=== PATIENT | male | born 1940 | race Caucasian/White ===

== ENCOUNTER → 2020-09-28 13:38 | Outpatient (BNVA) | payer BC, SELFPAY | PROVIDERS: PCP Internal Medicine; Visit Provider Urology ==

== ENCOUNTER → 2021-09-30 09:00 | Outpatient (BNVA) | payer BC, SELFPAY | PROVIDERS: Visit Provider Urology ==

== ENCOUNTER → 2022-10-03 12:39 | Outpatient (BNVA) | payer BC, SELFPAY | PROVIDERS: PCP Internal Medicine; Visit Provider Urology | DX: N39.3 Stress incontinence (female) (male) (principal); C61 Malignant neoplasm of prostate | CPT/HCPCS: 51798 ==

== ENCOUNTER 2023-11-23 13:47 | Outpatient (AMB) | payer BC, SELFPAY ==
--- NOTE | 2023-11-23 14:23 | MHC.OFFVIS ---
Intake Visit Reasons: 1Y PSA(set) Intake Note: Patient is Present for Follow Up PSA Urology Medication: None Antibiotic Allergies:None Blood Thinners:None Allergies lisinopril Allergy (Unknown, Verified 10/03/22 12:56) Unknown HPI Comments Details: Austen PEREZ is a very pleasant male. He is a patient of Dr Yi. He is seen in the office today for the following urologic conditions. - prostate cancer - stress incontinence - prior sling effective for 7 years PSA remains normal Good effect with dribblestop - does use for 8 hours Continue yearly follow-up Prostate cancer: Intermediate risk robotic prostatectomy December 2006, external beam radiation Jun 2008 PSA remains low Urine control is reasonable Has been using a clamp which has been helpful - dribblestop Review in 12 months Had infection with hematuria in 04/14 - no recurrence. Prostate cancer was diagnosed [address] Mejia. Diagnosis was reached by needle biopsy, for elevated PSA. TNM Classification of Malignant Tumours (TNM) T1c. The D'Isaak (NCCN) risk category is Intermediate Risk (PSA 10-20, Gl 7, T2) Group 2. Initial therapy included 2006 , Primary treatment, Prostatectomy (RRP/Robotic) 2008, Additional treatment, External beam radiation with short term hormonal ablation. - sling procedure 2008 - worked well for 7 years Recent labs included 11/12 , a PSA (prostate-specific antigen), < 0.1 04/14 PSA < 0.1, 09/16 PSA <0.1, 09/17 <0.1, 09/18 <0.1 Associated conditions erectile dysfunction Yes hematuria No hot flashes No incontinence Yes Stress incontinence frequent, requires pad protection Good response to penile clamp. osteopenia No pathologic fracture No radiation cystitis No rectal urgency No Therapeutic plan: Continue with surveillance [facility] Medical History Hyperlipidemia HTN (hypertension) Radiation cystitis Male stress incontinence Erectile dysfunction after radical prostatectomy Rising PSA following treatment for malignant neoplasm of prostate Prostate cancer Family History Father No problems noted. Mother No problems noted. Social History Household Members: Spouse Current occupational status: retired Review of Systems Const Denies chills and Denies fever(s) Card Reports no additional complaints and Denies syncope Resp Denies cough GI Denies abdominal pain and Denies heartburn Reports as per HPI and Denies change in libido Neuro Denies syncope Psych Denies change in libido Endo Denies change in libido Physical Exam Const General: cooperative, healthy appearing, comfortable and no acute distress Orientation/consciousness: patient oriented x3 HEENT Face and sinus: Yes normal facial exam Mouth: moist mucous membranes Neck Neck: Yes normal visual inspection, Yes full ROM and Yes trachea midline Chest Chest palpation & inspection: normal inspection of the chest Resp Effort & Inspection: normal respiratory effort, able to speak in complete sentences and no respiratory distress GI Inspection: Yes normal to inspection Back/Spine/Pelvis Cervical Spine: normal cervical lordosis Thoracic/Lumbar Spine: thoracic and lumbar spine normal to inspection Skin General skin exam: no rashes or lesions noted Neuro General: patient oriented x3, gait normal, tone normal and moves all extremities Extrem General: Yes normal to inspection and Yes capillary refill normal Assessment & Plan Assessment & Plan (1) Prostate cancer: Code(s): C61 - Malignant neoplasm of prostate Category: Medical (2) Male stress incontinence: Code(s): N39.3 - Stress incontinence (female) (male) Category: Medical Plan Twelve month follow-up Orders: Orders Prostate Specific Antigen 364 Days C61 - Malignant neoplasm of prostate Patient Instructions: Imaging studies, laboratory and physical exam results were discussed and reviewed in detail. No major barriers to patient understanding were identified. An opportunity to ask questions regarding the treatment plan was provided. All questions were answered. The patient expressed understanding and agreement with the above treatment plan. The patient is aware they should contact our office by phone for worsening of their current condition or the appearance of new urologic symptoms. Compliance is encouraged with any medications and followup testing that is ordered. It is a privilege to participate in the urologic care of your patient. If you have any questions or concerns regarding treatment for the above conditions, or other urologic issues, please do not hesitate to contact me. The office telephone contact is [phone]. This note is constructed using voice recognition software. While every effort has been made to ensure accuracy benefit director errors may have been included. Yours sincerely, Dr Vamshi Garcia MD, [facility] - Urology Providers of Expert, Compassionate Care for the Genitourinary System
== END 2023-11-23 15:09 | disposition home or self-care (01) ==
PROVIDERS: PCP Internal Medicine; Visit Provider Urology
DX: C61 Malignant neoplasm of prostate (principal); N39.3 Stress incontinence (female) (male)
CPT/HCPCS: 99213

== ENCOUNTER → 2023-11-23 13:47 | Outpatient (BNVA) | payer BC, SELFPAY | PROVIDERS: PCP Internal Medicine; Visit Provider Urology ==

== ENCOUNTER 2024-11-18 13:30 | Outpatient (AMB) | payer BC, SELFPAY ==
--- NOTE | 2024-11-18 13:40 | MHC.OFFVIS ---
Intake Visit Reasons: 1y/PSA Intake Note: Patient is Present for 1Y Follow Up PSA Urology Medication: None Antibiotic Allergies:None Blood Thinners:None Nuclear Technologist Required: No Allergies lisinopril Allergy (Unknown, Verified 11/18/24 13:41) Unknown HPI Comments Details: Austen PEREZ is a very pleasant male. He is a patient of Dr Estrella. He is seen in the office today for the following urologic conditions. - prostate cancer - stress incontinence - prior sling effective for 7 years Accompanied by PSA remains normal Does have some leakage in uses pads Discussed 3rd great grandchild Continue yearly follow-up Prostate cancer: Intermediate risk robotic prostatectomy December 2006, external beam radiation Jun 2008 PSA remains low Urine control is reasonable Has been using a clamp which has been helpful - nathan Review in 12 months Had infection with hematuria in 04/14 - no recurrence. Prostate cancer was diagnosed [address] Mejia. Diagnosis was reached by needle biopsy, for elevated PSA. TNM Classification of Malignant Tumours (TNM) T1c. The D'Isaak (NCCN) risk category is Intermediate Risk (PSA 10-20, Gl 7, T2) Group 2. Initial therapy included 2006 , Primary treatment, Prostatectomy (RRP/Robotic) 2008, Additional treatment, External beam radiation with short term hormonal ablation. - sling procedure 2008 - worked well for 7 years Recent labs included 11/12 , a PSA (prostate-specific antigen), < 0.1 04/14 PSA < 0.1, 09/16 PSA <0.1, 09/17 <0.1, 09/18 <0.1, 09/20 <0.1 Associated conditions erectile dysfunction Yes hematuria No hot flashes No incontinence Yes Stress incontinence frequent, requires pad protection Good response to penile clamp. osteopenia No pathologic fracture No radiation cystitis No rectal urgency No Therapeutic plan: Continue with surveillance [facility] Medical History Hyperlipidemia HTN (hypertension) Radiation cystitis Male stress incontinence Erectile dysfunction after radical prostatectomy Rising PSA following treatment for malignant neoplasm of prostate Prostate cancer Family History Father No problems noted. Mother No problems noted. Social History Household Members: Spouse Current occupational status: retired Review of Systems Const Denies chills and Denies fever(s) Card Reports no additional complaints and Denies syncope Resp Denies cough GI Denies abdominal pain and Denies heartburn Reports as per HPI and Denies change in libido Neuro Denies syncope Psych Denies change in libido Endo Denies change in libido Physical Exam Const General: cooperative, healthy appearing, comfortable and no acute distress Orientation/consciousness: patient oriented x3 HEENT Face and sinus: Yes normal facial exam Mouth: moist mucous membranes Neck Neck: Yes normal visual inspection, Yes full ROM and Yes trachea midline Chest Chest palpation & inspection: normal inspection of the chest Resp Effort & Inspection: normal respiratory effort, able to speak in complete sentences and no respiratory distress GI Inspection: Yes normal to inspection Back/Spine/Pelvis Cervical Spine: normal cervical lordosis Thoracic/Lumbar Spine: thoracic and lumbar spine normal to inspection Skin General skin exam: no rashes or lesions noted Neuro General: patient oriented x3, gait normal, tone normal and moves all extremities Extrem General: Yes normal to inspection and Yes capillary refill normal Assessment & Plan Assessment & Plan (1) Prostate cancer: Code(s): C61 - Malignant neoplasm of prostate Category: Medical (2) Male stress incontinence: Code(s): N39.3 - Stress incontinence (female) (male) Category: Medical Plan Twelve month follow-up Orders: Orders Prostate Specific Antigen 364 Days C61 - Malignant neoplasm of prostate Patient Instructions: This note is constructed using voice recognition software. While every effort has been made to ensure accuracy station cook errors may have been included. Imaging studies, laboratory and physical exam results were discussed and reviewed in detail. No major barriers to patient understanding were identified. An opportunity to ask questions regarding the treatment plan was provided. All questions were answered. The patient expressed understanding and agreement with the above treatment plan. The patient is aware they should contact our office by phone for worsening of their current condition or the appearance of new urologic symptoms. Compliance is encouraged with any medications and followup testing that is ordered. It is a privilege to participate in the urologic care of your patient. If you have any questions or concerns regarding treatment for the above conditions, or other urologic issues, please do not hesitate to contact me. The office telephone contact is [phone]. Sincerely, Dr Vamshi Garcia MD, [facility] - Urology Compassionate Specialist Care for the Genitourinary System Coding Level of Care Code Est Pt Level 4 (01094) Complex EM visit Add On G2211 Diagnoses Prostate cancer C61 Male stress incontinence N39.3
--- OUTSIDE RECORDS SUMMARY | 2024-11-18 16:31 | XMS_ITS | Referral Summary ---
Author Organization [facility] Address [address] [place] [address] Care Team Providers Care Sales Hunter Name Role Phone Tara Estrella MD Primary Care Provider [phone] Allergies Active Allergy Reactions Criticality Noted Date Comments Lisinopril Cough 06/21/2018 Other reaction(s): Cough Medications clindamycin (CLEOCIN) 300 mg capsule Take 1 capsule (300 mg total) by mouth 3 times a day. Follow dose with water, juice, or milk. 3 capsule 10/08/2023 Active amLODIPine (NORVASC) 10 mg tablet Take 10 mg by mouth. 08/29/2021 Active pravastatin (PRAVACHOL) 20 mg tablet Take 20 mg by mouth. 10/29/2013 Active losartan (COZAAR) 100 mg tablet Take 100 mg by mouth. 08/23/2020 Active triamterene-hyd rochlorothiazid (DYAZIDE) 37.5-25 mg per capsule Take 0.5 capsules by mouth every morning. Active clindamycin (CLEOCIN) 300 mg capsule Take 1 capsule (300 mg total) by mouth 3 times a day. Follow dose with water, juice, or milk. 3 capsule 12/25/2023 Active Active Problems Problem Noted Date Diagnosed Date History of skin cancer 10/03/2023 Xerosis cutis 07/14/2014 Hyperlipidemia 08/25/2013 Itching 07/15/2013 Aortic aneurysm 06/20/2013 Heart disease 03/20/2013 Essential hypertriglyceridemia 03/20/2013 Seborrheic keratosis 03/20/2013 Hypertension 03/20/2013 Prostate cancer 03/20/2013 Inguinal hernia 03/20/2013 Anxiety 03/20/2013 Resolved Problems Problem Noted Date Diagnosed Date Resolved Date Basal cell carcinoma (BCC) o f left upper extremity 10/29/2023 12/25/2023 Skin lesion 10/03/2023 12/25/2023 Actinic keratosis 03/20/2013 10/03/2023 Immunizations Immunization Administration Dates Next Due Tetanus Toxoid, Reduced Diph theria Toxoid, and Acellular Pertussis Vaccine, Adsorbed 06/20/2013 Social History Tobacco Use Types Packs/Day Years Used Date Smoking Tobacco: Former Comments:: Sex and Gender Information Value Date Recorded Sex Assigned at Not on file Legal Sex Male 12:13 AM EDT Gender Identity Not on file Sexual Orientation Not on file Last Filed Vital Signs Vital Sign Reading Time Taken Comments Blood Pressure 150/65 03/22/2015 11:45 AM EDT Pulse 60 03/22/2015 11:45 AM EDT Temperature 36.7 ??C (98 ??F) 03/22/2015 11:45 AM EDT Respiratory Rate - - Oxygen Saturation 97% 03/22/2015 11:45 AM EDT Inhaled Oxygen Concentration - - Weight 96.8 kg (213 lb 8 oz) 03/22/2015 11:45 AM EDT Height 180.3 cm (5' 11 ) 03/22/2015 11:45 AM EDT Body Mass Index 29.78 03/22/2015 11:45 AM EDT Plan of Treatment Not on file Insurance [facility] MCR REPLACE PPO Care Teams Sales Hunter Relationship Specialty Start Date End Date Tara Estrella MD [address] [place], [place] [phone] PCP - General Internal Medicine 10/03/23
--- OUTSIDE RECORDS SUMMARY | 2024-11-18 16:31 | XMS_ITS | Encounter Summary ---
Author Organization [facility] Address [address] [address] Phone Care Team Providers Care Security Patrol Officer Name Role Phone Tara Estrella MD Primary Care Provi [facility] Reason for Referral * Consultation (Elective) - Closed Specialty Diagnoses / Procedures Referred By Contac t Referred To Contact Neurology Diagnoses Encounter for consultation Tara Estrella MD [address] [place] [address] [facility] Parent [address] [place] [phone] Referral ID Status Reason Start Date Expiration Date Visits Re quested Visits Authorized [id number] Closed 03/27/2018 03/27/2019 1 1 Scheduling Instructions Request for eval of progressive right hand cramping and weakness. Reviewed by access team and assigned to neuro musc Encounter Details Date Type Department Care Team (Latest Contact Info) Description 03/27/2018 Transcribe Orders [facility] Department of Neurology [address] [place] [address] [address] [place], [place] [id number] Tara Estrella MD [address] [place] [address] Encounter for consultation (Primary Dx) Social History Tobacco Use Types Packs/Day Years Used Date Smoking Tobacco: Never Assessed Sex and Gender Information Value Date Recorded Sex Assigned at Not on file Gender Identity Not on file Sexual Orientation Not on file documented as of this encounter Plan of Treatment Scheduled Referrals Name Type Priority Associated Diagnoses Orde r Schedule Ambulatory referral to [facility] Neurology Outpatient Referral Routine Encounter for consultation Ordered: 03/27/2018 documented as of this encounter Visit Diagnoses Diagnosis Encounter for consultation- Primary documented in this encounter Care Teams Security Patrol Officer Relationship Specialty Start Date End Date Tara Estrella MD [address] [place] [address] PCP - General Cardiology 02/11/18 documented as of this encounter Additional Source Comments The information contained in this document represents components of the legal health record. It is not the complete legal health record.[facility]
--- OUTSIDE RECORDS SUMMARY | 2024-11-18 16:31 | XMS_ITS | Encounter Summary ---
Author Organization [facility] Address [address] [place] [phone] Phone Care Team Providers Care Admissions Specialist Name Role Phone Tara Estrella MD Primary Care Provi sarina Encounter Details Date Type Department Care Team (Late st Contact Info) Description 06/21/2018 Procedure Pass [facility] Imaging [address] [place] [address] Social History Tobacco Use Types Packs/Day Years Used Date Smoking Tobacco: Never Assessed Sex and Gender Information Value Date Recorded Sex Assigned at Not on file Gender Identity Not on file Sexual Orientation Not on file documented as of this encounter Plan of Treatment Not on file documented as of this encounter Visit Diagnoses Not on filedocumented in this encounter Care Teams Admissions Specialist Relationship Specialty Start Date End Date Tara Estrella MD [address] [place] [address] PCP - General Cardiology 02/11/18 documented as of this encounter Additional Source Comments The information contained in this document represents components of the legal health record. It is not the complete legal health record.[facility]
--- OUTSIDE RECORDS SUMMARY | 2024-11-18 16:31 | XMS_ITS | Clinical Summary ---
Author Organization [facility] Address [address] [place] [address] Care Team Providers Care Hospital Social Worker Name Role Phone Tara Estrella MD Primary Care Provider Allergies Active Allergy Reactions Criticality Noted Date [...] Toxoid, and Acellular Pertussis Vaccine, Adsorbed 06/20/2013 Family History Medical History Relation Name Comments Other Other 1 Family history of Hypertension Other Other 2 Denied Family H istory of colon cancer Other Other 3 Denied Family H istory of diabetes mellitus Other Other 4 Denied Family H istory of melanoma Other Other 5 Denied Family H istory of myocardial infarction Relation Name Status Comments Other 1 Other 2 Other 3 Other 4 Other 5 Social History Tobacco Use Types Packs/Day Years [...] 03/22/2015 11:45 AM EDT Plan of Treatment Health Maintenance Due Date Last Done Comments Basic Metabolic Panel 1940 RSV Vaccine (60+ years old and patients) (1 - 1-dose 75+ series) 2017 DTaP,Tdap,and Td Vaccines (3 - Td or Tdap) 06/20/2023 06/20/2013, 06/19/2013 COVID-19 Vaccine ( season) 2024 05/22/2023, 07/04/2022, 01/11/2022, Additional history exists Influenza Vaccine (#1) 2024 , 07/04/2022, 06/07/2021, Additional history exists Alcohol/Substance Use Screening 08/27/2024 Depression Screening and Follow-Up 08/27/2024 Health Care Proxy Review 08/27/2024 Social Drivers of Health Annual Screening 08/27/2024 Zoster Vaccines Completed 10/13/2021, 09/27, 08/02/2021, Additional history exists Pneumococcal Vaccine: 50+ Years Completed 11/09/2021, 07/03/2020 Hepatitis B Vaccines Aged Out No long er eligible based on patient's age to complete this topic Insurance [facility] MCR REPLACE PPO Care Teams Hospital Social Worker Relationship Specialty Start Date End Date Tara Estrella MD [address] [place], [place] [phone] PCP - General Internal Medicine 10/03/23
--- OUTSIDE RECORDS SUMMARY | 2024-11-18 16:31 | XMS_ITS | Clinical Summary ---
Author Organization [facility] Address [address] [facility] [address] [place] [phone] Phone Care Team Providers Care Day Habilitation Supervisor Name Role Phone Tara Estrella MD Primary Care Provi sarina Allergies Active Allergy Reactions Criticality Noted Date Comments Lisinopril Cough 06/21/2018 Medications Medication Sig Dispensed Refills Start Date End Date Status atenolol (TENORMIN) 25 MG tablet 05/09/2018 Active triamterene-hydroCHLO ROthiazide (MAXZIDE-25) 37.5-25 mg per tablet 05/06/2018 Active losartan (COZAAR) 50 MG tablet 05/06/2018 Active pravastatin (PRAVACHOL) 20 MG tablet 06/01/2018 Active triamcinolone acetonide 0.1 % cream Apply topically 2 (two) times a day. Active Active Problems No known active problems Social History Tobacco Use Types Packs/Day Years Used Date Smoking Tobacco: Former Cigarettes Q uit: 1969 Smokeless Tobacco: Former Education Answer Date Recorded Are you interested in more education? Not on jimenez e 12/30/2022 Are you concerned about learning? Not on file 12/30/2022 No 12/30/2022 No 12/30/2022 Digital Access Answer Date Recorded No 01/21/2023 No 01/21/2023 No 01/21/2023 Reliable internet access at home? Not on file 01/21/2023 Device with a working camera? Not on file Sex and Gender Information Value Date Recorded Sex Assigned at Not on file Gender Identity Not on file Sexual Orientation Not on file Last Filed Vital Signs Vital Sign Reading Time Taken Comments Blood Pressure 148/65 06/21/2018 9:36 AM EDT Pulse 57 06/21/2018 9:36 AM EDT Temperature 36.8 ??C (98.3 ??F) 06/21/2018 9:36 AM ED T Respiratory Rate - - Oxygen Saturation 96% 06/21/2018 9:36 AM EDT Inhaled Oxygen Concentration - - Weight 91.6 kg (202 lb) 06/21/2018 9:36 AM EDT Height 177 cm (5' 9.69 ) 06/21/2018 9:36 AM EDT shoes on Body Mass Index 29.25 06/21/2018 9:36 AM EDT Plan of Treatment Health Maintenance Due Date Last Done Comments Adult Td,Tdap Booster 1940 CREATININE LEVEL 1940 POTASSIUM LEVEL 1940 DEPRESSION SCREENING 1954 ZOSTER VACCINES (1 of 2) 1992 RSV VACCINE (1 - 1-dose 75+ series) 2017 PNEUMOCOCCAL VACCINES (50+ years) (2 of 2 - PPSV23) 07/03/2021 07/03/2020 INFLUENZA VACCINE (#1) 2024 07/03/2020 COVID-19 VACCINE (3 - 2023-2 5 season) 2024 10/22/2020, 10/01/2020 HEPATITIS A VACCINES Aged Out No long er eligible based on patient's age to complete this topic HIB VACCINES Aged Out No longer eligi ble based on patient's age to complete this topic MENINGOCOCCAL VACCINES (ACWY) Aged Out No longer eligible based on patient's age to complete this topic Medical Devices Not on file Care Teams Day Habilitation Supervisor Relationship Specialty Start Date End Date Tara Estrella MD [address] [place] [address] PCP - General Cardiology 02/11/18 Additional Source Comments The information contained in this document represents components of the legal health record. It is not the complete legal health record.[facility]
== END 2024-11-18 14:21 | disposition home or self-care (01) ==
PROVIDERS: PCP Internal Medicine; Visit Provider Urology
DX: C61 Malignant neoplasm of prostate (principal); N39.3 Stress incontinence (female) (male)
CPT/HCPCS: 99214